=== PATIENT | female | born 1990 | race Native Hawaiian/Other Pacific Islander ===

== ENCOUNTER 2016-06-19 23:53 | Emergency (ER) | payer OTHER ==
[~2016-06-19 23:53] MED LIST: FER300 PO; FOL1 PO; MAC100 PO; ZOF4 PO
[2016-06-20 01:41] VITALS: BP 123/79
== END 2016-06-20 01:41 | disposition home or self-care (01) ==
LOC: ED 23:53
DX: R11.2 Nausea with vomiting, unspecified (principal); R51 Headache; R10.9 Unspecified abdominal pain; F17.200 Nicotine dependence, unspecified, uncomplicated; Z98.890 Other specified postprocedural states
CPT/HCPCS: Q0162

== ENCOUNTER 2016-08-20 02:46 | Emergency (ER) | payer OTHER ==
[2016-08-20 04:09] VITALS: BP 196/73
== END 2016-08-20 04:09 | disposition home or self-care (01) ==
LOC: ED 02:46
DX: H66.93 Otitis media, unspecified, bilateral (principal); H60.503 Unspecified acute noninfective otitis externa, bilateral
CPT/HCPCS: J1885

== ENCOUNTER 2016-08-23 01:50 | Emergency (ER) | payer OTHER ==
[2016-08-23 03:24] VITALS: BP 140/75
== END 2016-08-23 01:59 | disposition home or self-care (01) ==
LOC: ED 01:50
DX: H66.93 Otitis media, unspecified, bilateral (principal); H60.93 Unspecified otitis externa, bilateral

== ENCOUNTER 2017-03-29 23:34 | Emergency (ER) | payer OTHER ==
[~2017-03-29] VITALS: Ht 167.6 cm; Wt 123.4 kg
[2017-03-30 00:27] VITALS: BP 138/90
== END 2017-03-30 00:27 | disposition home or self-care (01) ==
LOC: ED 23:34
DX: H65.91 Unspecified nonsuppurative otitis media, right ear (principal)